=== PATIENT | male | born 1980 | race Caucasian/White ===

== ENCOUNTER → 2016-09-23 | Outpatient (CLI) | payer OTHER ==
--- NOTE | 2016-09-24 23:47 | ECWPNPC ---
PATIENT NAME: HARVINDER GUY : 1980 GENDER: MALE VISIT DATE: 09/23/2016 DISCHARGE DATE: 09/23/16 1647 VISIT LOCKED DATE TIME: PHYSICIAN: JETHRO RODRIGUEZ RESOURCE: JETHRO RODRIGUEZ REASON FOR APPOINTMENT 1. NECK HISTORY OF PRESENT ILLNESS FALL RISK SCREENIN35 Y/O MALE HERE PER REFERRAL OF DR.SUNDIS LIRA FOR PERSISTENT NECK PAIN L>R.HISTORY OF CERVICAL DYSTONIA DIAGNOSED IN 2000.RECIEVING BOTOX ON EVERY THREE MONTH SCHEDULE WITH DR. 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 SCREENING :NO FALLS IN THE PAST YEAR PAIN SCREENING: PATIENT HAS A COMPLAINT OF ACUTE OR CHRONIC PAIN :YES CURRENT MEDICATIONS TAKING VITAMIN C 1000 MG TABLET CHEWABLE 1 TABLET ORALLY ONCE A DAY TAKING VITAMIN B-12 1000 MCG TABLET 1 TABLET ORALLY ONCE A DAY TAKING MULTIVITAMINS - TABLET 1 TABLET ORALLY ONCE A DAY TAKING SOMA 250 MG TABLET 1 TABLET ORALLY BEFORE BEDTIME PRN MEDICATION LIST REVIEWED AND RECONCILED WITH THE PATIENT PAST MEDICAL HISTORY TOBACCO ABUSE B12 DEFICIENCY CERVICAL DYSTONIA DAPHNE (OBSTRUCTIVE SLEEP APNEA) TINNITUS OF BOTH EARS ANXIETY CHRONIC PAIN OF LEFT KNEE RLS (RESTLESS LEGS SYNDROME) HX OF CDIFF 07/2014 ALLERGIES N.K.D.A. SURGICAL HISTORY APPENDECTOMY 07/2014 FAMILY HISTORY FATHER: ALIVE 72 YRS, DIAGNOSED WITH CANCER MOTHER: ALIVE 73 YRS PATERNAL GRAND FATHER: PATERNAL GRAND MOTHER: MATERNAL GRAND FATHER: MATERNAL GRAND MOTHER: 2 BROTHER(S) , 1 SISTER(S) - HEALTHY. 1 SON(S) - HEALTHY. DAD-PROSTATE CA1 BROTHER--LEUKEMIA. SOCIAL HISTORY GENERAL: TOBACCO USE ARE YOU A:CURRENT SMOKER HOW MANY CIGARETTES A DAY DO YOU SMOKE?6-10 HOW SOON AFTER YOU WAKE UP DO YOU SMOKE YOUR FIRST CIGARETTE?WITHIN 5 MIN HOW OFTEN DO YOU SMOKE CIGARETTES?EVERY DAY PATIENT COUNSELED ON THE DANGERS OF TOBACCO USE AND URGED TO QUIT:09/23/2016 ARE YOU INTERESTED IN QUITTING?NOT READY TO QUIT COUNSELED THE PATIENT ON SMOKING EFFECTS, EDUCATION [id number]/08/2017 ALCOHOL SCREENING POINTS0 INTERPRETATIONNEGATIVE RECREATIONAL DRUG USE DRUG USE?NO CAFFEINE CAFFEINE USE?YES HOW OFTEN AND HOW MUCH? 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 EXERCISE: DAILY. MARITAL STATUS: . OTHERS AT HOME: SPOUSE, CHILD. PETS: DOG. QUAKER [id number] AMISH LANGUAGE BENGALI. 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 LEARNING BARRIERS / SPECIAL NEEDS BARRIERS TO LEARNING?NO HEARING IMPAIRED?YES [place] VISION IMPAIRED?YES :CORRECTIVE LENSES COGNITIVELY IMPAIRED?NO READINESS TO LEARN?YES LEARNING PREFERENCES?YES :DEMONSTRATION/VERBAL INSTRUCTION EMOTIONAL BARRIERS?NO SPECIAL DEVICES?NO TYPEWRITER MECHANIC NEEDED?NO PAIN CLINIC PFS, CLERGY, PUBLIC HEALTH REFERRALS PFS REFERRAL NEEDED?NO CLERGY REFERRAL NEEDED?NO PUBLIC HEALTH REFERRAL NEEDED?NO ADVANCED DIRECTIVES HEALTH CARE PROXY?NO WOULD YOU LIKE MORE INFORMATION?NO DO YOU HAVE A DNR?NO WOULD YOU LIKE MORE INFORMATION?NO LIVING WILL?NO WOULD YOU LIKE MORE INFORMATION?NO POWER OF MEDICAL SUPERVISOR?NO WOULD YOU LIKE MORE INFORMATION?NO TRAVEL OUTSIDE US: NO. HOUSING: RENTS HOUSE. DOMESTIC VIOLENCE: NONE. 09/23/16 PLAN OF CARE FOR THE PAIN CENTER REVIEWED WITH PT. AND HE VERBALIZED UNDERSTANDING. AD. HOSPITALIZATION/MAJOR DIAGNOSTIC PROCEDURE FOR APPENDECTOMY--ENDED UP WITH C-DIFF 07/2014 REVIEW OF SYSTEMS CONSTITUTIONAL: ANY CHANGE IN YOUR MEDICAL CONDITION? NO . CHILLS NO . FEVER NO . INFECTION: DO YOU HAVE NEW INFECTIONS? NO . DO YOU HAVE HISTORY OF MRSA? NO HX OF CDIFF . MUSCULOSKELETAL: ANY NEW PATTERNS OF PAIN OR NUMBNESS? NO . SYTEMIC LUPUS NO . GASTROENTEROLOGY: ANY NEW CHANGE IN BOWEL CONTROL? NO . BARRETTS ESOPHAGUS NO . CIRRHOSIS NO . HEPATITIS NO . LIVER FAILURE NO . ACID REFLUX NO . UNEXPLAINED WEIGHT LOSS NO . GENITOURINARY: ANY NEW CHANGE IN BLADDER CONTROL? NO . IS THERE A CHANCE YOU COULD BE ? NO . HEMATOLOGY/LYMPH: DO YOU TAKE ANY BLOOD THINNERS? (FOR EXAMPLE- COUMADIN, PLAVIX, AGGRENOX, PLATEL, PRADAXA, OR XARELTO) NO . WHEN WAS YOUR LAST DOSE? DATE: TIME: . LOW PLATELET COUNT NO . SICKLE CELL DISEASE NO . VON WILLIEBRANDS NO . FACTOR V LEIDEN NO . THALLASEMIA NO . ANEMIA NO . EASY BRUISING NO . NEUROLOGY: HAVE YOU FALLEN IN THE PAST 6 MONTHS? NO . ANY NEW EXTREMITY NUMBNESS OR WEAKNESS? NO . HEAD INJURY NO . DEMENTIA NO . CEREBRAL PALSY NO . MULTIPLE SCLEROSIS NO . DIZZINESS NO . HEADACHE ADMITS, HX OF MIGRAINES--STATES THEY DON'T LAST LONG--TAKES TYLENOL FOR THEM&NBSP;. STROKES &NBSP;&NBSP; NO&NBSP;. VERTIGO &NBSP;&NBSP; NO&NBSP;. CARDIOLOGY: DO YOU HAVE A PACEMAKER OR DEFIBRILLATOR? NO . ANGINA NO . HEART ATTACK NO . HEART SURGERY NO . CONGESTIVE HEART FAILURE/FLUID OVERLOAD NO . CHEST PAIN NO . HIGH BLOOD PRESSURE NO . IRREGULAR HEART BEAT NO . RESPIRATORY: HAVE YOU BEEN SICK IN THE PAST WEEK? NO . FEVER NO . FLU LIKE SYMPTOMS? NO . CPAP NO, HAS IT BUT DOESN'T USE &NBSP;. BYPAP &NBSP;&NBSP; NO&NBSP;. ASTHMA &NBSP;&NBSP; NO&NBSP;. EMPHYSEMA &NBSP;&NBSP; NO&NBSP;. CHRONIC LUNG DISEASES &NBSP;&NBSP; NO&NBSP;. SHORTNESS OF BREATH ON EXERTION &NBSP;&NBSP; YES&NBSP;. COUGH &NBSP;&NBSP; NO&NBSP;. SNORING &NBSP;&NBSP; YES&NBSP;. INTEGUMENTARY: DO YOU HAVE ANY RASHES OR OPEN SORES? NO . ALLERGIC/IMMUNO: ARE YOU ALLERGIC TO SHELLFISH OR IV DYE? NO . ANY NEW ALLERGIES? NO . PSYCHIATRIC: DO YOU HAVE THOUGHTS OF HURTING YOURSELF OR SOMEONE ELSE? NO . ARE YOU ABUSED, NEGLECTED, OR IN AN UNSAFE ENVIRONMENT? NO . ENDOCRINOLOGY: ARE YOU DIABETIC? NO . THYROID DISORDER NO . OTHER: DO YOU NEED ANY PRESCRIPTIONS? NO . IF YES, PLEASE LIST: ____ . ANY NEW PROBLEMS WITH YOUR MEDICATIONS? NO . WHEN DID YOU LAST EAT? ____ . WHEN DID YOU LAST DRINK? ____ . WHAT DID YOU LAST DRINK? ____ . NAME OF PERSON DRIVING YOU HOME? ____ . DO YOU HAVE ANY OTHER QUESTIONS OR CONCERNS NO . REVIEWED BY: PROVIDER: JETHRO IGNACIO . VITAL SIGNS WT 257.6 LBS, HT 72 IN, BMI 34.93 INDEX, BP 140/79 MM HG, HR 80 /MIN, RR 16 /MIN, TEMP 98.7 F, OXYGEN SAT % 93, NA INITIALS SC 15:37, REVIEWED BY: AD. EXAMINATION GENERAL EXAMINATION: GENERAL APPEARANCE:ANXIOUS. PSYCHAFFECT FLAT. NECK:TILTED TO LEFT WITH OCCASIONAL DYSTONIC MOVEMENTS NOTED.. LUNGS:LUNG TRACEY ARE CLEAR TO AUSCULTATION BILATERALLY. GOOD MOVEMENT OF AIR. HEART:S1, S2 IN A REGULAR RATE AND RHYTHM. NO SIGNIFICANT MURMURS, RUBS OR GALLOPS NOTED. ABDOMEN:SOFT, NON-TENDER/NON-DISTENDED, BOWEL SOUNDS PRESENT. CERVICAL SPINE/NECK: C SPINE EXAM:DIAGNOSTIC DATA-MRI [id number]. RANGE OF MOTION OF NECK:PATIENT DEMONSTRATES SOME LIMITATIONS SECONDARY TO INCREASED PAIN.. REFLEXES:2 PLUS BILATERALLY. SENSATIONS:NORMAL BILATERALLY. MOTOR STRENGTH:NORMAL. VERTEBRAL SPINE TENDERNESS:MILD. PARASPINAL MUSCLE SPASM:PRESENT ON LEFT > RIGHT SIDE. TRAPEZIUS TENDERNESS:PRESENT ON LEFT > RIGHT SIDE. MYOFASCIAL TRIGGER POINTS:LEFT TRAPEZIUS AND RHOMBOID REGION. ASSESSMENTS MYOFASCIAL PAIN - M79.1 (PRIMARY) CERVICAL DYSTONIA - G24.3 TREATMENT MYOFASCIAL PAIN NOTES: TRIGGER POINT INJECTION MATERIAL WAS PRINTED,TRIGGER POINT INJECTION: YOUR EXPERIENCE MATERIAL WAS PRINTED. OTHERS TRIGGER POINT 1-2 JETHRO ALDANA 09/23/2016 4:32:32 PM > LEFT NECK NOTES: PT 2X WK X 8 WEEKS. PREVENTIVE MEDICINE PAIN CLINIC TEACHING: PROCEDURE TEACHING PRINTED INFORMATION ON TPI GIVEN TO AND EXPLAINED TO PT. ALONG WITH PRE-PROCEDURE INSTRUCTIONS. PT. VERBALIZED UNDERSTANDING OF BOTH. AD. PROCEDURE CODES FA211 ESTABILISHED PATIENT [facility] FAC[facility] CHARGE DISPOSITION & COMMUNICATION FOLLOW UP 2WK POST (REASON: LEFT NECK TPI) ELECTRONICALLY SIGNED BY MATEUS RUBY ON 09/24/2016 AT 01:55 PM EDT DISCLAIMER : THIS IS A VISIT SUMMARY EXTRACTED FROM THE [employer] CHART. IT IS NOT A COPY OF THE [employer] PROGRESS NOTE. MTDD
== END ==
LOC: M PAIN 15:20
PROVIDERS: ATTEND Nurse Practitioner Family
DX: G89.29 Other chronic pain (principal); M79.1 Myalgia; G24.3 Spasmodic torticollis; F41.9 Anxiety disorder, unspecified; F17.210 Nicotine dependence, cigarettes, uncomplicated; E53.8 Deficiency of other specified B group vitamins; G47.33 Obstructive sleep apnea (adult) (pediatric); H93.13 Tinnitus, bilateral; M25.562 Pain in left knee; G25.81 Restless legs syndrome; Z86.19 Personal history of other infectious and parasitic diseases; Z79.899 Other long term (current) drug therapy

== ENCOUNTER → 2016-10-08 | Outpatient (CLI) | payer OTHER ==
--- NOTE | 2016-10-22 00:52 | ECWPNPC ---
PATIENT NAME: HARVINDER GUY : 1980 GENDER: MALE VISIT DATE: 10/08/2016 DISCHARGE DATE: 10/08/16928 VISIT LOCKED DATE TIME: PHYSICIAN: LUISITO SADLER RESOURCE: LUISITO SADLER REASON FOR APPOINTMENT 1. CERVICAL PAIN HISTORY OF PRESENT ILLNESS HISTORY OF PRESENT ILLNESS: PAIN THE PATIENT DESCRIBES THE PAIN... 35 YEAR OLD MALE PATIENT WITH HISTORY OF CHRONIC NECK DYSTONIA AND PAIN. PATIENT DESCRIBES THE PAIN ACHING, SORE AND THROBBING WITH A PAIN SCORE OF 8/10. PATIENT STATES THAT HE RECEIVED A BOTOX INJECTION FOR HIS CERVICAL DYSTONIA YESTERDAY AT DR. GORE'S OFFICE. DUE TO THE BOTOX INJECTION WE WILL NOT MOVE FORWARD WITH ANY INJECTION UNTIL 1 MONTH AFTER. PATIENT IS CURRENTLY USING SOMA FOR MUSCLE SPASMS AND REPORTS AIDING IN PAIN RELIEF. PATIENT DENIES UNEXPLAINABLE WEIGHT LOSS, FEVER, CHILLS, NEW CHANGES ON HIS URINARY OR BOWEL CONTROL. FALL RISK SCREENING: SCREENING :NO FALLS IN THE PAST YEAR CURRENT MEDICATIONS TAKING VITAMIN C 1000 MG TABLET CHEWABLE 1 TABLET ORALLY ONCE A DAY, NOTES: 10/08 7AM TAKING VITAMIN B-12 1000 MCG TABLET 1 TABLET ORALLY ONCE A DAY, NOTES: 10/08 7AM TAKING MULTIVITAMINS - TABLET 1 TABLET ORALLY ONCE A DAY, NOTES: 10/08 7AM TAKING SOMA 250 MG TABLET 1 TABLET ORALLY BEFORE BEDTIME PRN, NOTES: 10/06 9PM MEDICATION LIST REVIEWED AND RECONCILED WITH THE PATIENT PAST MEDICAL HISTORY TOBACCO ABUSE B12 DEFICIENCY CERVICAL DYSTONIA DAPHNE (OBSTRUCTIVE SLEEP APNEA) TINNITUS OF BOTH EARS ANXIETY CHRONIC PAIN OF LEFT KNEE RLS (RESTLESS LEGS SYNDROME) HX OF CDIFF 07/2014 ALLERGIES N.K.D.A. SURGICAL HISTORY APPENDECTOMY 07/2014 FAMILY HISTORY FATHER: ALIVE 72 YRS, DIAGNOSED WITH CANCER MOTHER: ALIVE 73 YRS PATERNAL GRAND FATHER: PATERNAL GRAND MOTHER: MATERNAL GRAND FATHER: MATERNAL GRAND MOTHER: 2 BROTHER(S) , 1 SISTER(S) - HEALTHY. 1 SON(S) - HEALTHY. DAD-PROSTATE CA1 BROTHER--LEUKEMIA. SOCIAL HISTORY GENERAL: TOBACCO USE ARE YOU A:CURRENT SMOKER HOW MANY CIGARETTES A DAY DO YOU SMOKE?6-10 HOW SOON AFTER YOU WAKE UP DO YOU SMOKE YOUR FIRST CIGARETTE?WITHIN 5 MIN HOW OFTEN DO YOU SMOKE CIGARETTES?EVERY DAY PATIENT COUNSELED ON THE DANGERS OF TOBACCO USE AND URGED TO QUIT:09/23/2016 ARE YOU INTERESTED IN QUITTING?NOT READY TO QUIT COUNSELED THE PATIENT ON SMOKING EFFECTS, EDUCATION [id number]/08/2017 ALCOHOL SCREENING DID YOU HAVE A DRINK CONTAINING ALCOHOL IN THE PAST YEAR?NO POINTS0 INTERPRETATIONNEGATIVE RECREATIONAL DRUG USE DRUG USE?NO CAFFEINE CAFFEINE USE?YES HOW OFTEN AND HOW MUCH? 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 EXERCISE: DAILY. MARITAL STATUS: . OTHERS AT HOME: SPOUSE, CHILD. PETS: DOG. MANDAEISM [id number] PROTESTANT LANGUAGE [place]DIAN. 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 LEARNING BARRIERS / SPECIAL NEEDS BARRIERS TO LEARNING?NO HEARING IMPAIRED?YES [place] VISION IMPAIRED?YES :CORRECTIVE LENSES COGNITIVELY IMPAIRED?NO READINESS TO LEARN?YES LEARNING PREFERENCES?YES :DEMONSTRATION/VERBAL INSTRUCTION EMOTIONAL BARRIERS?NO SPECIAL DEVICES?NO PARTY PLANNER NEEDED?NO PAIN CLINIC PFS, CLERGY, PUBLIC HEALTH REFERRALS PFS REFERRAL NEEDED?NO CLERGY REFERRAL NEEDED?NO PUBLIC HEALTH REFERRAL NEEDED?NO ADVANCED DIRECTIVES HEALTH CARE PROXY?NO WOULD YOU LIKE MORE INFORMATION?NO DO YOU HAVE A DNR?NO WOULD YOU LIKE MORE INFORMATION?NO LIVING WILL?NO WOULD YOU LIKE MORE INFORMATION?NO POWER OF TRACKLESS TROLLEY DRIVER?NO WOULD YOU LIKE MORE INFORMATION?NO TRAVEL OUTSIDE US: NO. HOUSING: RENTS HOUSE. DOMESTIC VIOLENCE NONE. 09/23/16 PLAN OF CARE FOR THE PAIN CENTER REVIEWED WITH PT. AND HE VERBALIZED UNDERSTANDING. AD. HOSPITALIZATION/MAJOR DIAGNOSTIC PROCEDURE FOR APPENDECTOMY--ENDED UP WITH C-DIFF 07/2014 REVIEW OF SYSTEMS CONSTITUTIONAL: ANY CHANGE IN YOUR MEDICAL CONDITION? NO . CHILLS NO . FEVER NO . INFECTION: DO YOU HAVE NEW INFECTIONS? NO . DO YOU HAVE HISTORY OF MRSA? NO . MUSCULOSKELETAL: ANY NEW PATTERNS OF PAIN OR NUMBNESS? NO . GASTROENTEROLOGY: ANY NEW CHANGE IN BOWEL CONTROL? NO . GENITOURINARY: ANY NEW CHANGE IN BLADDER CONTROL? NO . IS THERE A CHANCE YOU COULD BE ? NO . HEMATOLOGY/LYMPH: DO YOU TAKE ANY BLOOD THINNERS? (FOR EXAMPLE- COUMADIN, PLAVIX, AGGRENOX, PLATEL, PRADAXA, OR XARELTO) NO . WHEN WAS YOUR LAST DOSE? DATE: TIME: . NEUROLOGY: HAVE YOU FALLEN IN THE PAST 6 MONTHS? NO . ANY NEW EXTREMITY NUMBNESS OR WEAKNESS? NO . CARDIOLOGY: DO YOU HAVE A PACEMAKER OR DEFIBRILLATOR? NO . RESPIRATORY: HAVE YOU BEEN SICK IN THE PAST WEEK? NO . FEVER NO . FLU LIKE SYMPTOMS? NO . COUGH NO . INTEGUMENTARY: DO YOU HAVE ANY RASHES OR OPEN SORES? NO . ALLERGIC/IMMUNO: ARE YOU ALLERGIC TO SHELLFISH OR IV DYE? NO . ANY NEW ALLERGIES? NO . PSYCHIATRIC: DO YOU HAVE THOUGHTS OF HURTING YOURSELF OR SOMEONE ELSE? NO . ARE YOU ABUSED, NEGLECTED, OR IN AN UNSAFE ENVIRONMENT? NO . ENDOCRINOLOGY: ARE YOU DIABETIC? NO . OTHER: DO YOU NEED ANY PRESCRIPTIONS? NO . IF YES, PLEASE LIST: ____ . ANY NEW PROBLEMS WITH YOUR MEDICATIONS? NO . WHEN DID YOU LAST EAT? ____ . WHEN DID YOU LAST DRINK? ____ . WHAT DID YOU LAST DRINK? ____ . NAME OF PERSON DRIVING YOU HOME? ____ . DO YOU HAVE ANY OTHER QUESTIONS OR CONCERNS PT STATES THAT HE IS A CURRENT SMOKER, REFUSING ANY SMOKING CESSATION COUSELING AT THIS TIME. PT STATES THAT HE HAD BOTOX IN NECK WITH DR LIRA YESTERDAY. PT STATES THAT HE WAS BOOKED FOR TPI FOR NECK PAIN. . REVIEWED BY: PROVIDER: LUISITO SADLER MD . VITAL SIGNS WT 257.8 LBS, HT 72 IN, BMI 34.96 INDEX, BP 130/73 MM HG, HR 78 /MIN, RR 16 /MIN, TEMP 97.6 F, OXYGEN SAT % 95, SAFE IN ENV? (Y/N) Y, NA INITIALS CA 08:42, REVIEWED BY: JENNIFER. EXAMINATION : PATIENT IS ALERT O X 3 AND COOPERATIVE. TENDERNESS IN THE CERVICAL AREA AND PARASPINAL MUSCLE GROUP. BANDS OF TISSUE, RESTRICTION OF MOVEMENT AND PRESENCE OF TRIGGER POINTS IN THE CERVICAL AND SHOULDER AREA. MRI DONE ON 09/07/16 OF THE CERVICAL AREA SHOWS SPONDYLOSIS AT C5-C6 AND C6-C7, OSTEOARTHRITIC CHANGES, AND A SMALL SYNOVIAL CYST AT C4-C5. ASSESSMENTS MYALGIA - M79.1 (PRIMARY) SPONDYLOSIS WITHOUT MYELOPATHY OR RADICULOPATHY, CERVICAL REGION - M47.812 TREATMENT MYALGIA NOTES: WE DISCUSSED SEVERAL ISSUES WITH MR. GUY'S PAIN MANAGEMENT CASE. AT THIS TIME THE PATIENT WILL CONTINUE WITH THE SAME MEDICATION REGIME BEFORE. PATIENT WILL RETURN TO THE CLINIC IN 1 MONTH TO PROCEED WITH TRIGGER POINT INJECTIONS. PATIENT IS AWARE WHY HE UNABLE TO HAVE THE INJECTION TODAY. WE DISCUSSED THE RISKS, BENENFITS, AND ALTNERATIVES OF THE INJECTION AND THE PATIENT WOULD LIKE TO PROCEED AT THIS TIME. INSTRUCTIONS WERE GIVEN, QUESTIONS WERE ANSWERED, PATIENT REPORTS UNDERSTANDING AND AGREES WITH THE PLAN. I, SUZETTE COON, DOCUMENTED THE ABOVE INFORMATION ACTING A SCRIBE FOR DR. SADLER. I HAVE REVIEWED THE ABOVE DOCUMENT, WRITTEN BY SUZETTE CANALES AND I VERIFY THAT IT IS ACCURATE. PROCEDURE CODES FA211 ESTABILISHED PATIENT [facility] CHARGE G8427 DOC MEDS VERIFIED W/PT OR RE G8730 PAIN ASSESS POS TOOL F/U PLAN DOC DISPOSITION & COMMUNICATION FOLLOW UP 1 MONTH TPI ELECTRONICALLY SIGNED BY LUISITO SADLER MD ON 10/21/2016 AT 09:25 PM EDT DISCLAIMER : THIS IS A VISIT SUMMARY EXTRACTED FROM THE [employer] CHART. IT IS NOT A COPY OF THE [employer] PROGRESS NOTE. KOLE
== END ==
LOC: M PAIN 08:30
PROVIDERS: ATTEND Anesthesiology
DX: G89.29 Other chronic pain (principal); M79.1 Myalgia; M47.812 Spondylosis without myelopathy or radiculopathy, cervical region; F17.210 Nicotine dependence, cigarettes, uncomplicated; E53.8 Deficiency of other specified B group vitamins; G24.8 Other dystonia; G47.33 Obstructive sleep apnea (adult) (pediatric); F41.9 Anxiety disorder, unspecified; G25.81 Restless legs syndrome; H93.13 Tinnitus, bilateral; M25.562 Pain in left knee; Z79.899 Other long term (current) drug therapy; Z86.19 Personal history of other infectious and parasitic diseases

== ENCOUNTER → 2016-12-10 | Outpatient (CLI) | payer OTHER ==
[~2016-12-10] MED LIST: BUPIVACAINE HCL 0.25% 10 ML VIAL As Ordered ONE; BUPIVACAINE HCL 0.25% 30 ML VIAL As Ordered ONE; TRIAMCINOLONE ACETONIDE SUSP 40 MG/ML VIAL (J3301) As Ordered ONE
--- NOTE | 2016-12-26 00:37 | ECWPNPC ---
PATIENT NAME: HARVINDER GUY : 1980 GENDER: MALE VISIT DATE: 12/10/2016 DISCHARGE DATE: 12/10/16 0957 VISIT LOCKED DATE TIME: PHYSICIAN: LUISITO SADLER RESOURCE: LUISITO SADLER REASON FOR APPOINTMENT 1. NECK HISTORY OF PRESENT ILLNESS HISTORY OF PRESENT ILLNESS: PAIN THE PATIENT DESCRIBES THE PAIN... FALL RISK SCREENING: SCREENING :NO FALLS IN THE PAST YEAR CURRENT MEDICATIONS TAKING VITAMIN C 1000 MG TABLET CHEWABLE 1 TABLET ORALLY ONCE A DAY, NOTES: 12-08-16 TAKING VITAMIN B-12 1000 MCG TABLET 1 TABLET ORALLY ONCE A DAY, NOTES: 12-08-16 TAKING MULTIVITAMINS - TABLET 1 TABLET ORALLY ONCE A DAY, NOTES: 12-08-16 TAKING SOMA 250 MG TABLET 1 TABLET ORALLY BEFORE BEDTIME PRN, NOTES: BEEN A WHILE MEDICATION LIST REVIEWED AND RECONCILED WITH THE PATIENT PAST MEDICAL HISTORY TOBACCO ABUSE B12 DEFICIENCY CERVICAL DYSTONIA DAPHNE (OBSTRUCTIVE SLEEP APNEA) TINNITUS OF BOTH EARS ANXIETY CHRONIC PAIN OF LEFT KNEE RLS (RESTLESS LEGS SYNDROME) HX OF CDIFF 07/2014 ALLERGIES N.K.D.A. SOCIAL HISTORY GENERAL: TOBACCO USE ARE YOU A:CURRENT SMOKER HOW MANY CIGARETTES A DAY DO YOU SMOKE?6-10 HOW SOON AFTER YOU WAKE UP DO YOU SMOKE YOUR FIRST CIGARETTE?WITHIN 5 MIN HOW OFTEN DO YOU SMOKE CIGARETTES?EVERY DAY PATIENT COUNSELED ON THE DANGERS OF TOBACCO USE AND URGED TO QUIT:09/23/2016 ARE YOU INTERESTED IN QUITTING?NOT READY TO QUIT COUNSELED THE PATIENT ON SMOKING EFFECTS, EDUCATION [id number]/08/2017 SMOKING CESSATION INFORMATION GIVEN12/10/2016 ALCOHOL SCREENING DID YOU HAVE A DRINK CONTAINING ALCOHOL IN THE PAST YEAR?NO POINTS0 INTERPRETATIONNEGATIVE RECREATIONAL DRUG USE DRUG USE?NO CAFFEINE CAFFEINE USE?YES HOW OFTEN AND HOW MUCH? 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 EXERCISE: DAILY. MARITAL STATUS: . OTHERS AT HOME: SPOUSE, CHILD. PETS: DOG. ORTHODOXY [id number] JAINISM LANGUAGE TURKISH. 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 LEARNING BARRIERS / SPECIAL NEEDS BARRIERS TO LEARNING?NO HEARING IMPAIRED?YES [place] VISION IMPAIRED?YES :CORRECTIVE LENSES COGNITIVELY IMPAIRED?NO READINESS TO LEARN?YES LEARNING PREFERENCES?YES :DEMONSTRATION/VERBAL INSTRUCTION EMOTIONAL BARRIERS?NO SPECIAL DEVICES?NO HOE WORKER NEEDED?NO PAIN CLINIC PFS, CLERGY, PUBLIC HEALTH REFERRALS PFS REFERRAL NEEDED?NO CLERGY REFERRAL NEEDED?NO PUBLIC HEALTH REFERRAL NEEDED?NO ADVANCE DIRECTIVES HEALTH CARE PROXY?NO WOULD YOU LIKE MORE INFORMATION?NO DO YOU HAVE A DNR?NO WOULD YOU LIKE MORE INFORMATION?NO LIVING WILL?NO WOULD YOU LIKE MORE INFORMATION?NO POWER OF WEBSPHERE MESSAGE BROKER DEVELOPER?NO WOULD YOU LIKE MORE INFORMATION?NO TRAVEL OUTSIDE US: NO. HOUSING: RENTS HOUSE. DOMESTIC VIOLENCE NONE. 09/23/16 PLAN OF CARE FOR THE PAIN CENTER REVIEWED WITH PT. AND HE VERBALIZED UNDERSTANDING. AD. REVIEW OF SYSTEMS REVIEWED BY: PROVIDER: . CONSTITUTIONAL: ANY CHANGE IN YOUR MEDICAL CONDITION? NO . CHILLS NO . FEVER NO . INFECTION: DO YOU HAVE NEW INFECTIONS? NO . DO YOU HAVE HISTORY OF MRSA? NO . MUSCULOSKELETAL: ANY NEW PATTERNS OF PAIN OR NUMBNESS? NO . GASTROENTEROLOGY: ANY NEW CHANGE IN BOWEL CONTROL? NO . GENITOURINARY: ANY NEW CHANGE IN BLADDER CONTROL? NO . IS THERE A CHANCE YOU COULD BE ? NO . HEMATOLOGY/LYMPH: DO YOU TAKE ANY BLOOD THINNERS? (FOR EXAMPLE- COUMADIN, PLAVIX, AGGRENOX, PLATEL, PRADAXA, OR XARELTO) NO . WHEN WAS YOUR LAST DOSE? DATE: TIME: . NEUROLOGY: HAVE YOU FALLEN IN THE PAST 6 MONTHS? NO . ANY NEW EXTREMITY NUMBNESS OR WEAKNESS? NO . CARDIOLOGY: DO YOU HAVE A PACEMAKER OR DEFIBRILLATOR? NO . RESPIRATORY: HAVE YOU BEEN SICK IN THE PAST WEEK? NO . FEVER NO . FLU LIKE SYMPTOMS? NO . COUGH NO . INTEGUMENTARY: DO YOU HAVE ANY RASHES OR OPEN SORES? NO . ALLERGIC/IMMUNO: ARE YOU ALLERGIC TO SHELLFISH OR IV DYE? NO . ANY NEW ALLERGIES? NO . PSYCHIATRIC: DO YOU HAVE THOUGHTS OF HURTING YOURSELF OR SOMEONE ELSE? NO . ARE YOU ABUSED, NEGLECTED, OR IN AN UNSAFE ENVIRONMENT? NO . ENDOCRINOLOGY: ARE YOU DIABETIC? NO . OTHER: DO YOU NEED ANY PRESCRIPTIONS? NO . IF YES, PLEASE LIST: ____ . ANY NEW PROBLEMS WITH YOUR MEDICATIONS? NO . WHEN DID YOU LAST EAT? ____LAST NIGHT . WHEN DID YOU LAST DRINK? ____ . WHAT DID YOU LAST DRINK? ____LAST NIGHT . NAME OF PERSON DRIVING YOU HOME? ____WIFE . DO YOU HAVE ANY OTHER QUESTIONS OR CONCERNS NO . VITAL SIGNS WT 250 LBS, HT 72 IN, BMI 33.90 INDEX, BP 127/77 MM HG, HR 80 /MIN, RR 16 /MIN, TEMP 97.8 F, OXYGEN SAT % 95%, NA INITIALS SC 08:48, REVIEWED BY: KG. ASSESSMENTS MYALGIA - M79.1 (PRIMARY) PROCEDURES PN TRIGGER POINT INJECTION WITH STEROIDS PRE PROCEDURE DIAGNOSIS 1. MYALGIA 2. PAIN AT BILATERAL NECK AREA AND BILATERAL SHOULDER AREA POST PROCEDURE DIAGNOSIS 1. MYALGIA 2. PAIN AT BILATERAL NECK AREA AND BILATERAL SHOULDER AREA PROCEDURE TRIGGER POINT INJECTION AT BILATERAL NECK AREA AND BILATERAL SHOULDER AREA SURGEON DR. LUISITO SADLER COMMODITIES BROKER NONE ANESTHESIA LOCAL PRE PROCEDURE NOTE THE PATIENT HAS A HISTORY OF CHRONIC PAIN AT THE RIGHT AND LEFT NECK AREA AND RIGHT AND LEFT SHOULDER AREA. I EVALUATE THE PATIENT AND REVIEWED THE CHART. THERE IS EVIDENCE OF BANDS OF TISSUE WITH RESTRICTION OF MOVEMENT AND PRESENCE OF TRIGGER POINT AT THE AFFECTED AREA. I WENT OVER THE RISKS, ALTERNATIVES, AND BENEFITS ASSOCIATED WITH THIS PROCEDURE. THE PATIENT WOULD LIKE TO PROCEED AND GIVE CONSENT TO PERFORMED THE PROCEDURE. THE PATIENT DENIES UNEXPLAINABLE WEIGHT LOSS, FEVER, CHILLS, OR NEW CHANGES IN URINARY OR BOWEL CONTROL DESCRIPTION OF PROCEDURE THE PATIENT WAS BROUGHT TO THE PROCEDURE ROOM AND PLACED IN THE SITTING POSITION. THE AREA WAS CLEANED WITH ALCOHOL. THE PROCEDURE WAS DONE USING ASEPTIC STERILE TECHNIQUE. I CHECKED LATERALITY AND THE LEVEL WHERE THE PROCEDURE WAS GOING TO BE PERFORMED WITH THE PATIENT AND THE SUPPORTING STAFF AT THE MOMENT OF THE TIME OUT IN THE PROCEDURE ROOM. USING A 25-GAUGE NEEDLE, TRIGGER POINTS WERE INJECTED AT THE RIGHT AND LEFT NECK AREA AND RIGHT AND LEFT SHOULDER AREA WITH A TOTAL OF 40 ML OF BUPIVACAINE 0.25% AND KENALOG 40 MG. THERE WAS NO EVIDENCE OF BLOOD, PARESTHESIA OR CEREBROSPINAL FLUID DURING THE PROCEDURE. THE PATIENT WAS SENT TO THE RECOVERY ROOM. THE PATIENT WAS MOVING THE EXTREMITIES AND DOING WELL. THERE WAS NO COMPLICATION DURING THE PROCEDURE POST PROCEDURE NOTE THE PATIENT WILL BE SEEN IN A FOLLOW UP IN THE NEXT FEW WEEKS. INSTRUCTIONS WERE GIVEN, QUESTIONS WERE ANSWERED, AND THE PATIENT EXPRESSED UNDERSTANDING AND AGREES WITH THE PLAN. I, SUZETTE COON, DOCUMENTED THE ABOVE INFORMATION ACTING A SCRIBE FOR DR. SADLER. I, DR. SADLER, HAVE REVIEWED THE ABOVE DOCUMENT, SCRIBED BY SUZETTE COON, AND I VERIFY THAT IT IS ACCURATE PROCEDURE CODES 96838 INJECT TRIGGER POINTS 3/> DISPOSITION & COMMUNICATION FOLLOW UP 3 WEEKS ELECTRONICALLY SIGNED BY LUISITO SADLER MD ON 12/24/2016 AT 11:08 PM EDT DISCLAIMER : THIS IS A VISIT SUMMARY EXTRACTED FROM THE [employer] CHART. IT IS NOT A COPY OF THE [employer] PROGRESS NOTE. KOLE
== END ==
LOC: M PAIN 08:30
PROVIDERS: ATTEND Anesthesiology
DX: M79.1 Myalgia (principal); G89.29 Other chronic pain; E53.8 Deficiency of other specified B group vitamins; G47.33 Obstructive sleep apnea (adult) (pediatric); F17.210 Nicotine dependence, cigarettes, uncomplicated; F41.9 Anxiety disorder, unspecified; G25.81 Restless legs syndrome; M25.562 Pain in left knee; H93.13 Tinnitus, bilateral; G24.1 Genetic torsion dystonia; Z79.891 Long term (current) use of opiate analgesic; Z79.899 Other long term (current) drug therapy
CPT/HCPCS: 20553; J3301

== ENCOUNTER → 2016-12-31 | Outpatient (CLI) | payer OTHER ==
--- NOTE | 2017-01-23 01:10 | ECWPNPC ---
PATIENT NAME: HARVINDER GUY : 1980 GENDER: MALE VISIT DATE: 12/31/2016 DISCHARGE DATE: 12/31/16 1609 VISIT LOCKED DATE TIME: PHYSICIAN: JETHRO RODRIGUEZ RESOURCE: JETHRO RODRIGUEZ REASON FOR APPOINTMENT 1. POST TPI HISTORY OF PRESENT ILLNESS HISTORY OF PRESENT ILLNESS: PAIN THE PATIENT DESCRIBES THE PAIN... FALL RISK SCREENIN35 Y/O MALE HERE PER REFERRAL OF DR.SUNDIS LIRA FOR PERSISTENT NECK PAIN L>R.HISTORY OF CERVICAL DYSTONIA DIAGNOSED IN 2000.RECIEVING BOTOX ON EVERY THREE MONTH SCHEDULE WITH DR. LIRA THAT WILL CONTINUE.HAS TRIALED ACCUPUNCTURE,PHYSICAL THERAPY AND POTATO CHIP FRYER WITHOUT IMPROVEMENT.HERE FOR POST PROC. 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 SCREENING :NO FALLS IN THE PAST YEAR :NO FALLS IN THE PAST YEAR CURRENT MEDICATIONS TAKING VITAMIN C 1000 MG TABLET CHEWABLE 1 TABLET ORALLY ONCE A DAY TAKING VITAMIN B-12 1000 MCG TABLET 1 TABLET ORALLY ONCE A DAY TAKING MULTIVITAMINS - TABLET 1 TABLET ORALLY ONCE A DAY TAKING SOMA 250 MG TABLET 1 TABLET ORALLY BEFORE BEDTIME PRN MEDICATION LIST REVIEWED AND RECONCILED WITH THE PATIENT PAST MEDICAL HISTORY TOBACCO ABUSE B12 DEFICIENCY CERVICAL DYSTONIA DAPHNE (OBSTRUCTIVE SLEEP APNEA) TINNITUS OF BOTH EARS ANXIETY CHRONIC PAIN OF LEFT KNEE RLS (RESTLESS LEGS SYNDROME) HX OF CDIFF 07/2014 ALLERGIES N.K.D.A. SOCIAL HISTORY GENERAL: TOBACCO USE ARE YOU A:CURRENT SMOKER HOW MANY CIGARETTES A DAY DO YOU SMOKE?6-10 HOW SOON AFTER YOU WAKE UP DO YOU SMOKE YOUR FIRST CIGARETTE?WITHIN 5 MIN HOW OFTEN DO YOU SMOKE CIGARETTES?EVERY DAY PATIENT COUNSELED ON THE DANGERS OF TOBACCO USE AND URGED TO QUIT:09/23/2016 ARE YOU INTERESTED IN QUITTING?NOT READY TO QUIT COUNSELED THE PATIENT ON SMOKING EFFECTS, EDUCATION [id number]/08/2017 SMOKING CESSATION INFORMATION GIVEN12/10/2016 ALCOHOL SCREENING DID YOU HAVE A DRINK CONTAINING ALCOHOL IN THE PAST YEAR?NO POINTS0 INTERPRETATIONNEGATIVE RECREATIONAL DRUG USE DRUG USE?NO CAFFEINE CAFFEINE USE?YES HOW OFTEN AND HOW MUCH? 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 EXERCISE: DAILY. MARITAL STATUS: . OTHERS AT HOME: SPOUSE, CHILD. PETS: DOG. ORTHODOXY [id number] LANGUAGE SCOTTISH. 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 LEARNING BARRIERS / SPECIAL NEEDS BARRIERS TO LEARNING?NO HEARING IMPAIRED?YES [place] VISION IMPAIRED?YES :CORRECTIVE LENSES COGNITIVELY IMPAIRED?NO READINESS TO LEARN?YES LEARNING PREFERENCES?YES :DEMONSTRATION/VERBAL INSTRUCTION EMOTIONAL BARRIERS?NO SPECIAL DEVICES?NO SMOCKER NEEDED?NO PAIN CLINIC PFS, CLERGY, PUBLIC HEALTH REFERRALS PFS REFERRAL NEEDED?NO CLERGY REFERRAL NEEDED?NO PUBLIC HEALTH REFERRAL NEEDED?NO HAS THE PATIENT BEEN EDUCATED REGARDING HIS/HER PLAN OF CARE?YES HAS THE PATIENT BEEN EDUCATED REGARDING PAIN, THE RISK FOR PAIN, THE IMPORTANCE OF EFFECTIVE PAIN MANAGEMENT, AND THE PAIN ASSESSMENT PROCESS?YES ADVANCE DIRECTIVES HEALTH CARE PROXY?NO WOULD YOU LIKE MORE INFORMATION?NO DO YOU HAVE A DNR?NO WOULD YOU LIKE MORE INFORMATION?NO LIVING WILL?NO WOULD YOU LIKE MORE INFORMATION?NO POWER OF [place] PACKER?NO WOULD YOU LIKE MORE INFORMATION?NO TRAVEL OUTSIDE US: NO. HOUSING: RENTS HOUSE. DOMESTIC VIOLENCE NONE. 09/23/16 PLAN OF CARE FOR THE PAIN CENTER REVIEWED WITH PT. AND HE VERBALIZED UNDERSTANDING. AD. REVIEW OF SYSTEMS REVIEWED BY: PROVIDER: JETHRO IGNACIO . CONSTITUTIONAL: ANY CHANGE IN YOUR MEDICAL CONDITION? NO . CHILLS NO . FEVER NO . INFECTION: DO YOU HAVE NEW INFECTIONS? NO . DO YOU HAVE HISTORY OF MRSA? NO . MUSCULOSKELETAL: ANY NEW PATTERNS OF PAIN OR NUMBNESS? NO . GASTROENTEROLOGY: ANY NEW CHANGE IN BOWEL CONTROL? NO . GENITOURINARY: ANY NEW CHANGE IN BLADDER CONTROL? NO . IS THERE A CHANCE YOU COULD BE ? NO . HEMATOLOGY/LYMPH: DO YOU TAKE ANY BLOOD THINNERS? (FOR EXAMPLE- COUMADIN, PLAVIX, AGGRENOX, PLATEL, PRADAXA, OR XARELTO) NO . WHEN WAS YOUR LAST DOSE? DATE: TIME: . NEUROLOGY: HAVE YOU FALLEN IN THE PAST 6 MONTHS? NO . ANY NEW EXTREMITY NUMBNESS OR WEAKNESS? NO . CARDIOLOGY: DO YOU HAVE A PACEMAKER OR DEFIBRILLATOR? NO . RESPIRATORY: HAVE YOU BEEN SICK IN THE PAST WEEK? NO . FEVER NO . FLU LIKE SYMPTOMS? NO . COUGH NO . INTEGUMENTARY: DO YOU HAVE ANY RASHES OR OPEN SORES? NO . ALLERGIC/IMMUNO: ARE YOU ALLERGIC TO SHELLFISH OR IV DYE? NO . ANY NEW ALLERGIES? NO . PSYCHIATRIC: DO YOU HAVE THOUGHTS OF HURTING YOURSELF OR SOMEONE ELSE? NO . ARE YOU ABUSED, NEGLECTED, OR IN AN UNSAFE ENVIRONMENT? NO . ENDOCRINOLOGY: ARE YOU DIABETIC? NO . OTHER: DO YOU NEED ANY PRESCRIPTIONS? YES . IF YES, PLEASE LIST: SOMA . ANY NEW PROBLEMS WITH YOUR MEDICATIONS? NO . WHEN DID YOU LAST EAT? ____ . WHEN DID YOU LAST DRINK? ____ . WHAT DID YOU LAST DRINK? ____ . NAME OF PERSON DRIVING YOU HOME? ____ . DO YOU HAVE ANY OTHER QUESTIONS OR CONCERNS NO . VITAL SIGNS WT 250 LBS, HT 72 IN, BMI 33.90 INDEX, BP 128/82 MM HG, HR 73 /MIN, RR 16 /MIN, TEMP 98.2 F, OXYGEN SAT % 93%, NA INITIALS AW 1516, REVIEWED BY: PATRICIA. EXAMINATION GENERAL EXAMINATION: GENERAL APPEARANCE:ANXIOUS. PSYCHAFFECT FLAT. NECK:TILTED TO LEFT WITH OCCASIONAL DYSTONIC MOVEMENTS NOTED.. LUNGS:LUNG TRACEY ARE CLEAR TO AUSCULTATION BILATERALLY. GOOD MOVEMENT OF AIR. HEART:S1, S2 IN A REGULAR RATE AND RHYTHM. NO SIGNIFICANT MURMURS, RUBS OR GALLOPS NOTED. ABDOMEN:SOFT, NON-TENDER/NON-DISTENDED, BOWEL SOUNDS PRESENT. CERVICAL SPINE/NECK: C SPINE EXAM:DIAGNOSTIC DATA-MRI [id number]. RANGE OF MOTION OF NECK:PATIENT DEMONSTRATES SOME LIMITATIONS SECONDARY TO INCREASED PAIN.. REFLEXES:2 PLUS BILATERALLY. SENSATIONS:NORMAL BILATERALLY. MOTOR STRENGTH:NORMAL. VERTEBRAL SPINE TENDERNESS:MILD. PARASPINAL MUSCLE SPASM:PRESENT ON LEFT > RIGHT SIDE. TRAPEZIUS TENDERNESS:PRESENT ON LEFT > RIGHT SIDE. MYOFASCIAL TRIGGER POINTS:LEFT TRAPEZIUS AND RHOMBOID REGION. ASSESSMENTS MYOFASCIAL PAIN - M79.1 (PRIMARY) CERVICAL DYSTONIA - G24.3 TREATMENT MYOFASCIAL PAIN NOTES: TPI NECK. REFERRAL TO:PHYSIOTHERAPY REASON:[id number] [id number] RELEASE-NECK PREVENTIVE MEDICINE PAIN CLINIC TEACHING: PROCEDURE TEACHING PRE-PROCEDURE TEACHING DONE. QUESTIONS ANSWERED AND PATIENT VERBALIZES UNDERSTANDING.. PROCEDURE CODES FA211 ESTABILISHED PATIENT [facility] CHARGE DISPOSITION & COMMUNICATION FOLLOW UP 2WK POST (REASON: TPI NEK) ELECTRONICALLY SIGNED BY MATEUS RUBY ON 01/22/2017 AT 05:02 PM EDT DISCLAIMER : THIS IS A VISIT SUMMARY EXTRACTED FROM THE [employer] CHART. IT IS NOT A COPY OF THE [employer] PROGRESS NOTE. KOLE
== END ==
LOC: M PAIN 15:00
PROVIDERS: ATTEND Nurse Practitioner Family
DX: G89.29 Other chronic pain (principal); M79.1 Myalgia; G24.3 Spasmodic torticollis; F41.9 Anxiety disorder, unspecified; E53.8 Deficiency of other specified B group vitamins; G47.33 Obstructive sleep apnea (adult) (pediatric); M25.561 Pain in right knee; G25.81 Restless legs syndrome; Z79.899 Other long term (current) drug therapy; F17.210 Nicotine dependence, cigarettes, uncomplicated

== ENCOUNTER → 2017-03-19 | Outpatient (CLI) | payer OTHER ==
[~2017-03-19] MED LIST changes: +diazePAM 5 MG TAB As Ordered ONE; +oxyCODONE 5MG TAB As Ordered ONE
--- NOTE | 2017-04-06 23:58 | ECWPNPC ---
PATIENT NAME: HARVINDER GUY : 1980 GENDER: MALE VISIT DATE: 03/19/2017 DISCHARGE DATE: 03/19/17 1728 VISIT LOCKED DATE TIME: PHYSICIAN: LUISITO SADLER RESOURCE: LUISITO SADLER REASON FOR APPOINTMENT 1. TPI, NECK HISTORY OF PRESENT ILLNESS HISTORY OF PRESENT ILLNESS: PAIN THE PATIENT DESCRIBES THE PAIN... FALL RISK SCREENING: SCREENING :NO FALLS IN THE PAST YEAR CURRENT MEDICATIONS TAKING VITAMIN C 1000 MG TABLET CHEWABLE 1 TABLET ORALLY ONCE A DAY, NOTES: 03/18/17 TAKING VITAMIN B-12 1000 MCG TABLET 1 TABLET ORALLY ONCE A DAY, NOTES: 03/18/17 TAKING MULTIVITAMINS - TABLET 1 TABLET ORALLY ONCE A DAY, NOTES: 03/18/17 TAKING SOMA 250 MG TABLET 1 TABLET ORALLY BEFORE BEDTIME PRN, NOTES: 03/15/17 MEDICATION LIST REVIEWED AND RECONCILED WITH THE PATIENT PAST MEDICAL HISTORY TOBACCO ABUSE B12 DEFICIENCY CERVICAL DYSTONIA DAPHNE (OBSTRUCTIVE SLEEP APNEA) TINNITUS OF BOTH EARS ANXIETY CHRONIC PAIN OF LEFT KNEE RLS (RESTLESS LEGS SYNDROME) HX OF CDIFF 07/2014 ALLERGIES N.K.D.A. SURGICAL HISTORY APPENDECTOMY 07/2014 SOCIAL HISTORY GENERAL: TOBACCO USE ARE YOU A:CURRENT SMOKER HOW MANY CIGARETTES A DAY DO YOU SMOKE?6-10 HOW SOON AFTER YOU WAKE UP DO YOU SMOKE YOUR FIRST CIGARETTE?WITHIN 5 MIN HOW OFTEN DO YOU SMOKE CIGARETTES?EVERY DAY PATIENT COUNSELED ON THE DANGERS OF TOBACCO USE AND URGED TO QUIT:09/23/2016 ARE YOU INTERESTED IN QUITTING?NOT READY TO QUIT COUNSELED THE PATIENT ON SMOKING EFFECTS, EDUCATION [id number]/08/2017 SMOKING CESSATION INFORMATION GIVEN12/10/2016 ALCOHOL SCREENING DID YOU HAVE A DRINK CONTAINING ALCOHOL IN THE PAST YEAR?NO POINTS0 INTERPRETATIONNEGATIVE RECREATIONAL DRUG USE DRUG USE?NO CAFFEINE CAFFEINE USE?YES HOW OFTEN AND HOW MUCH? 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 EXERCISE: DAILY. MARITAL STATUS: . OTHERS AT HOME: SPOUSE, CHILD. PETS: DOG. EPISCOPAL [id number] [employer] LANGUAGE [place]. 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 PAIN CLINIC PFS, CLERGY, PUBLIC HEALTH REFERRALS PFS REFERRAL NEEDED?NO CLERGY REFERRAL NEEDED?NO PUBLIC HEALTH REFERRAL NEEDED?NO HAS THE PATIENT BEEN EDUCATED REGARDING HIS/HER PLAN OF CARE?YES HAS THE PATIENT BEEN EDUCATED REGARDING PAIN, THE RISK FOR PAIN, THE IMPORTANCE OF EFFECTIVE PAIN MANAGEMENT, AND THE PAIN ASSESSMENT PROCESS?YES ADVANCE DIRECTIVES HEALTH CARE PROXY?NO WOULD YOU LIKE MORE INFORMATION?NO DO YOU HAVE A DNR?NO WOULD YOU LIKE MORE INFORMATION?NO LIVING WILL?NO WOULD YOU LIKE MORE INFORMATION?NO POWER OF [employer] ASSEMBLY SUPERVISOR?NO WOULD YOU LIKE MORE INFORMATION?NO TRAVEL OUTSIDE US: NO. HOUSING: RENTS HOUSE. DOMESTIC VIOLENCE NONE. 09/23/16 PLAN OF CARE FOR THE PAIN CENTER REVIEWED WITH PT. AND HE VERBALIZED UNDERSTANDING. AD. HOSPITALIZATION/MAJOR DIAGNOSTIC PROCEDURE FOR APPENDECTOMY--ENDED UP WITH C-DIFF 07/2014 REVIEW OF SYSTEMS REVIEWED BY: PROVIDER: . CONSTITUTIONAL: ANY CHANGE IN YOUR MEDICAL CONDITION? NO . CHILLS NO . FEVER NO . INFECTION: DO YOU HAVE NEW INFECTIONS? NO . DO YOU HAVE HISTORY OF MRSA? NO . MUSCULOSKELETAL: ANY NEW PATTERNS OF PAIN OR NUMBNESS? NO . GASTROENTEROLOGY: ANY NEW CHANGE IN BOWEL CONTROL? NO . GENITOURINARY: ANY NEW CHANGE IN BLADDER CONTROL? NO . IS THERE A CHANCE YOU COULD BE ? NO . HEMATOLOGY/LYMPH: DO YOU TAKE ANY BLOOD THINNERS? (FOR EXAMPLE- COUMADIN, PLAVIX, AGGRENOX, PLATEL, PRADAXA, OR XARELTO) NO . WHEN WAS YOUR LAST DOSE? DATE: TIME: . NEUROLOGY: HAVE YOU FALLEN IN THE PAST 6 MONTHS? NO . ANY NEW EXTREMITY NUMBNESS OR WEAKNESS? NO . CARDIOLOGY: DO YOU HAVE A PACEMAKER OR DEFIBRILLATOR? NO . RESPIRATORY: HAVE YOU BEEN SICK IN THE PAST WEEK? NO . FEVER NO . FLU LIKE SYMPTOMS? NO . COUGH NO . INTEGUMENTARY: DO YOU HAVE ANY RASHES OR OPEN SORES? NO . ALLERGIC/IMMUNO: ARE YOU ALLERGIC TO SHELLFISH OR IV DYE? NO . ANY NEW ALLERGIES? NO . PSYCHIATRIC: DO YOU HAVE THOUGHTS OF HURTING YOURSELF OR SOMEONE ELSE? NO . ARE YOU ABUSED, NEGLECTED, OR IN AN UNSAFE ENVIRONMENT? NO . ENDOCRINOLOGY: ARE YOU DIABETIC? NO . OTHER: DO YOU NEED ANY PRESCRIPTIONS? NO . IF YES, PLEASE LIST: ____ . ANY NEW PROBLEMS WITH YOUR MEDICATIONS? NO . WHEN DID YOU LAST EAT? 03/19/17 1100 . WHEN DID YOU LAST DRINK? 03/19/17 1400 . WHAT DID YOU LAST DRINK? WATER . NAME OF PERSON DRIVING YOU HOME? GAGIE . DO YOU HAVE ANY OTHER QUESTIONS OR CONCERNS NO, PT STATES HE RECEIVED FLU VACCINE THE END OF TO EARLY FEBRUARY, CAN'T REMEMBER EXACT DATE . VITAL SIGNS WT 256.0 LBS, HT 72 IN, BMI 34.72 INDEX, BP 159/98 MM HG, HR 91 /MIN, RR 16 /MIN, TEMP 99.0 F, OXYGEN SAT % 96%, NA INITIALS TL 1531ELEVATED BP- TL. ASSESSMENTS MYALGIA - M79.1 (PRIMARY) PROCEDURES PN TRIGGER POINT INJECTION WITH STEROIDS PRE PROCEDURE DIAGNOSIS 1. MYALGIA 2. PAIN AT BILATERAL NECK AREA AND BILATERAL SHOULDER AREA POST PROCEDURE DIAGNOSIS 1. MYALGIA 2. PAIN AT BILATERAL NECK AREA AND BILATERAL SHOULDER AREA PROCEDURE TRIGGER POINT INJECTION AT BILATERAL NECK AREA AND BILATERAL SHOULDER AREA SURGEON DR. LUISITO SADLER DENTOFACIAL ORTHOPEDICS DENTIST NONE ANESTHESIA LOCAL PRE PROCEDURE NOTE THE PATIENT HAS A HISTORY OF CHRONIC PAIN AT THE RIGHT AND LEFT NECK AREA AND RIGHT AND LEFT SHOULDER AREA. I EVALUATE THE PATIENT AND REVIEWED THE CHART. THERE IS EVIDENCE OF BANDS OF TISSUE WITH RESTRICTION OF MOVEMENT AND PRESENCE OF TRIGGER POINT AT THE AFFECTED AREA. I WENT OVER THE RISKS, ALTERNATIVES, AND BENEFITS ASSOCIATED WITH THIS PROCEDURE. THE PATIENT WOULD LIKE TO PROCEED AND GIVE CONSENT TO PERFORMED THE PROCEDURE. THE PATIENT DENIES UNEXPLAINABLE WEIGHT LOSS, FEVER, CHILLS, OR NEW CHANGES IN URINARY OR BOWEL CONTROL DESCRIPTION OF PROCEDURE THE PATIENT WAS BROUGHT TO THE PROCEDURE ROOM AND PLACED IN THE SITTING POSITION. THE AREA WAS CLEANED WITH ALCOHOL. THE PROCEDURE WAS DONE USING ASEPTIC STERILE TECHNIQUE. I CHECKED LATERALITY AND THE LEVEL WHERE THE PROCEDURE WAS GOING TO BE PERFORMED WITH THE PATIENT AND THE SUPPORTING STAFF AT THE MOMENT OF THE TIME OUT IN THE PROCEDURE ROOM. USING A 25-GAUGE NEEDLE, TRIGGER POINTS WERE INJECTED AT THE RIGHT AND LEFT NECK AREA AND RIGHT AND LEFT SHOULDER AREA WITH A TOTAL OF 40 ML OF BUPIVACAINE 0.25% AND KENALOG 40 MG. THERE WAS NO EVIDENCE OF BLOOD, PARESTHESIA OR CEREBROSPINAL FLUID DURING THE PROCEDURE. THE PATIENT WAS SENT TO THE RECOVERY ROOM. THE PATIENT WAS MOVING THE EXTREMITIES AND DOING WELL. THERE WAS NO COMPLICATION DURING THE PROCEDURE POST PROCEDURE NOTE THE PATIENT WILL BE SEEN IN A FOLLOW UP IN THE NEXT FEW WEEKS. INSTRUCTIONS WERE GIVEN, QUESTIONS WERE ANSWERED, AND THE PATIENT EXPRESSED UNDERSTANDING AND AGREES WITH THE PLAN. I, SUZETTE COON, DOCUMENTED THE ABOVE INFORMATION ACTING A SCRIBE FOR DR. SADLER. I HAVE REVIEWED THE ABOVE DOCUMENT, WRITTEN BY SUZETTE CANALES AND I VERIFY THAT IT IS ACCURATE PROCEDURE CODES 02817 INJECT TRIGGER POINTS 3/> DISPOSITION & COMMUNICATION FOLLOW UP 3 WEEKS ELECTRONICALLY SIGNED BY LUISITO SADLER MD ON 04/06/2017 AT 08:52 PM EST DISCLAIMER : THIS IS A VISIT SUMMARY EXTRACTED FROM THE [employer] CHART. IT IS NOT A COPY OF THE [employer] PROGRESS NOTE. KOLE
== END ==
LOC: M PAIN 15:15
PROVIDERS: ATTEND Anesthesiology
DX: G89.29 Other chronic pain (principal); M54.2 Cervicalgia; M25.511 Pain in right shoulder; M25.512 Pain in left shoulder; M79.1 Myalgia; D51.9 Vitamin B12 deficiency anemia, unspecified; G47.30 Sleep apnea, unspecified; F41.9 Anxiety disorder, unspecified; G25.81 Restless legs syndrome; F17.210 Nicotine dependence, cigarettes, uncomplicated; Z79.891 Long term (current) use of opiate analgesic; Z79.899 Other long term (current) drug therapy
CPT/HCPCS: 20553; J3301

== ENCOUNTER 2017-05-30 18:55 | Emergency (ER) | payer OTHER ==
[2017-05-30 21:14] LABS: ABG BASE EXCESS -2.4 (-2.0-2.0); ABG HCO3 21.1 MEQ/L (22.0-26.0); ABG O2 SATURATION 94.4 % (95.0-99.0); ABG PARTIAL PRESSURE CO2 32.9 mmHg (35.0-45.0); ABG PARTIAL PRESSURE O2 67.1 mmHg (75.0-100.0); ABG STANDARD HCO3 22.4 MEQ/L (22.0-26.0); ABG TOTAL CO2 22.1 MEQ/L (22.0-29.0); ABG pH (ARTERIAL) 7.424 UNITS (7.350-7.450)
[2017-05-30 21:27] LABS: BASO % 0.4 % (0.0-1.0); EOS # 0.3 10^3/uL (0.0-0.50); EOS % 3.2 % (0.0-3.0); HEMATOCRIT 43.5 % (42.0-52.0); HEMOGLOBIN 15.5 g/dl (14.0-18.0); IMMATURE GRANULOCYTE % 0.4 % (0-0); LYMPH # 3.4 10^3/uL (1.5-4.5); LYMPH % 33.7 % (24.0-44.0); MEAN CORPUSCULAR HEMOGLOBIN 30.2 pg (27.0-33.0); MEAN CORPUSCULAR HGB CONC 35.6 g/dl (32.0-36.5); MEAN CORPUSCULAR VOLUME 84.6 fl (80.0-96.0); MONO # 0.8 10^3/uL (0.0-0.8); NEUTROPHILS # 5.5 10^3/uL (1.8-7.7); NEUTROPHILS % 54.3 % (36.0-66.0); PLATELET COUNT, AUTOMATED 304 10^3/uL (150-450); RED BLOOD COUNT 5.14 10^6/uL (4.30-6.10); RED CELL DISTRIBUTION WIDTH 13.2 % (11.5-14.5); WHITE BLOOD COUNT 10.1 10^3/uL (4.0-10.0)
[2017-05-30 21:36] LABS: ANION GAP 4 MEQ/L (8-16); BLOOD UREA NITROGEN 10 MG/DL (7-18); CARBON DIOXIDE LEVEL 28 MEQ/L (21-32); CHLORIDE LEVEL 108 MEQ/L (98-107); CREATININE FOR GFR 0.96 MG/DL (0.70-1.30); GLOMERULAR FILTRATION RATE > 60.0 (>60); GLUCOSE, FASTING 104 MG/DL (70-105); SODIUM LEVEL 140 MEQ/L (136-145)
[2017-05-30] MEDS ORDERED: ISOVUE-370 76% 100ML VIAL (Q9967) As Ordered (22:37)
== END 2017-05-30 23:25 | disposition home or self-care (01) ==
LOC: M ED 18:55
DX: F41.9 Anxiety disorder, unspecified (principal); Z79.899 Other long term (current) drug therapy
CPT/HCPCS: Q9967

== ENCOUNTER 2017-11-02 12:49 | Emergency (ER) | payer OTHER ==
[2017-11-02] MEDS: NS 1,000 ML IV (13:45)
[2017-11-02] MEDS ORDERED: METAL LOCK LOOP XX (13:52)
[2017-11-02 14:32] LABS: BASO % 0.4 % (0.0-1.0); EOS # 0.3 10^3/uL (0.0-0.50); EOS % 3.1 % (0.0-3.0); HEMATOCRIT 44.7 % (42.0-52.0); HEMOGLOBIN 15.8 g/dl (13.5-17.5); IMMATURE GRANULOCYTE % 0.4 % (0-3.0); LYMPH # 3.2 10^3/uL (1.5-4.5); LYMPH % 31.6 % (24.0-44.0); MEAN CORPUSCULAR HEMOGLOBIN 29.5 pg (27.0-33.0); MEAN CORPUSCULAR HGB CONC 35.3 g/dl (32.0-36.5); MEAN CORPUSCULAR VOLUME 83.6 fl (80.0-96.0); MONO # 0.8 10^3/uL (0.0-0.8); MONO % 8.4 % (0.0-5.0); NEUTROPHILS # 5.6 10^3/uL (1.8-7.7); NEUTROPHILS % 56.1 % (36.0-66.0); PLATELET COUNT, AUTOMATED 276 10^3/uL (150-450); RED BLOOD COUNT 5.35 10^6/uL (4.30-6.10); RED CELL DISTRIBUTION WIDTH 13.2 % (11.5-14.5)
[2017-11-02] MEDS: METOCLOPRAMIDE INJ 10MG/2ML VIAL (J2765) IV (14:41)
[2017-11-02] MEDS: diphenhydrAMINE INJ 50MG/ML VIAL (J1200) IV (14:41)
[2017-11-02] MEDS: KETOROLAC 30 MG/ML VIAL (J1885) IV (14:41)
[2017-11-02 14:53] LABS: ANION GAP 8 MEQ/L (8-16); BLOOD UREA NITROGEN 8 MG/DL (7-18); CALCIUM LEVEL 8.4 MG/DL (8.5-10.1); CARBON DIOXIDE LEVEL 25 MEQ/L (21-32); CHLORIDE LEVEL 109 MEQ/L (98-107); CREATININE FOR GFR 0.74 MG/DL (0.70-1.30); GLOMERULAR FILTRATION RATE > 60.0 (>60); GLUCOSE, FASTING 94 MG/DL (70-100); POTASSIUM SERUM 4.3 MEQ/L (3.5-5.1); SODIUM LEVEL 142 MEQ/L (136-145)
== END 2017-11-02 16:16 | disposition home or self-care (01) ==
LOC: M ED 12:49
DX: G43.709 Chronic migraine without aura, not intractable, without status migrainosus (principal); G47.62 Sleep related leg cramps
CPT/HCPCS: J1200

== ENCOUNTER → 2017-11-17 | Outpatient (CLI) | payer OTHER ==
[2017-11-17 16:10] LABS: ESTIMATED AVERAGE GLUCOSE 117 MG/DL (60-110); HEMOGLOBIN A1c 5.7 %
[2017-11-17 16:19] LABS: ERYTHROCYTE SEDIMENTATION RATE 4 mm/hr (0-15)
[2017-11-17 16:45] LABS: RHEUMATOID FACTOR QUANT < 10.0 IU/ML (<15.0)
[2017-11-17 16:47] LABS: VITAMIN B12 LEVEL 1679 PG/ML
[2017-11-17 16:48] LABS: FOLATE 23.4 NG/ML
[2017-11-25 00:07] LABS: ACETYLCHOLINE RCPTOR BINDING A < 0.03 nmol/L (0.00-0.24); ACETYLCHOLINE RCPTOR BLOCK AB 12 % (0-25); ACETYLCHOLINE RCPTOR MODULATIN <12 % (0-20); ANTINUCLEAR ANTIBODIES DIRECT Negative (Negative); STRIATIONAL ANTIBODIES Negative (Neg:<1:40); VITAMIN B1 LEVEL WHOLE BLOOD 123.2 nmol/L (66.5-200.0); VITAMIN B6,PYRIDOXAL PHOSPHATE 38.3 ug/L (5.3-46.7); VITAMIN E(ALPHA TOCOPHEROL) 29.4 mg/L (5.9-19.4)
== END ==
LOC: M LAB 15:17
DX: G62.9 Polyneuropathy, unspecified (principal)
CPT/HCPCS: 82746

== ENCOUNTER 2018-05-21 11:41 | Emergency (ER) | payer OTHER ==
[~2018-05-21] VITALS: Ht 188 cm; Wt 109.5 kg
[~2018-05-21 11:41] MED LIST changes: -BUPIVACAINE HCL 0.25% 10 ML VIAL As Ordered ONE; -BUPIVACAINE HCL 0.25% 30 ML VIAL As Ordered ONE; +NAPR-885 PO; +SOMA250T PO; -TRIAMCINOLONE ACETONIDE SUSP 40 MG/ML VIAL (J3301) As Ordered ONE; -diazePAM 5 MG TAB As Ordered ONE; -oxyCODONE 5MG TAB As Ordered ONE
[2018-05-21] MEDS ORDERED: HYDR-3713 (11:49)
[2018-05-21] MEDS ORDERED: TOPI100T9 (11:49)
[2018-05-21] MEDS ORDERED: DIAZ2TAB (11:49)
[2018-05-21 12:53] LABS: BASO % 0.3 % (0.0-1.0); EOS # 0.3 10^3/uL (0.0-0.50); HEMOGLOBIN 16.2 g/dl (13.5-17.5); LYMPH % 29.5 % (24.0-44.0); MEAN CORPUSCULAR HEMOGLOBIN 29.2 pg (27.0-33.0); MEAN CORPUSCULAR HGB CONC 34.5 g/dl (32.0-36.5); MEAN CORPUSCULAR VOLUME 84.7 fl (80.0-96.0); MONO # 0.6 10^3/uL (0.0-0.8); MONO % 5.6 % (0.0-5.0); NEUTROPHILS # 6.2 10^3/uL (1.8-7.7); NEUTROPHILS % 61.3 % (36.0-66.0); PLATELET COUNT, AUTOMATED 290 10^3/uL (150-450); RED BLOOD COUNT 5.55 10^6/uL (4.30-6.10)
[2018-05-21 13:23] LABS: MONO REFLEX EBV COMP NEGATIVE (NEGATIVE)
--- NOTE | 2018-05-21 13:42 | REP ---
However quadrant sonography: History: Left upper quadrant abdominal pain. Findings: Scanning through left upper quadrant of the abdomen demonstrates a normal sized homogeneous spleen measuring 11.7 cm in greatest diameter. There is no evidence of ascites in the left upper quadrant. No hydronephrosis is seen on the left. The left kidney is morphologically intact with dimensions of 13.0 x 6.8 x 6.0 cm. Impression: Negative left upper quadrant sonogram. Electronically Signed by Aayush Ta MD 05/21/2018 01:34 P
[2018-05-21 13:47] LABS: ALBUMIN 4.1 GM/DL (3.2-5.2); ALT/SGPT 42 U/L (12-78); BILIRUBIN,DIRECT < 0.1 MG/DL (0.0-0.2); BILIRUBIN,TOTAL 0.2 MG/DL (0.2-1.0); BLOOD UREA NITROGEN 8 MG/DL (7-18); CALCIUM LEVEL 9.2 MG/DL (8.5-10.1); CARBON DIOXIDE LEVEL 19 MEQ/L (21-32); CHLORIDE LEVEL 112 MEQ/L (98-107); CREATININE FOR GFR 0.86 MG/DL (0.70-1.30); GLOMERULAR FILTRATION RATE > 60.0 (>60); GLUCOSE, FASTING 91 MG/DL (70-100); POTASSIUM SERUM 4.1 MEQ/L (3.5-5.1); SODIUM LEVEL 140 MEQ/L (136-145); TOTAL PROTEIN 7.3 GM/DL (6.4-8.2)
[2018-05-21] MEDS ORDERED: PERC5TAB12 PO (14:10)
[2018-05-21 14:20] VITALS: BP 116/62
[2018-05-23 14:13] LABS: EBV VIRAL CAPSID AG IgG >600.0 U/mL (0.0-17.9); EBV VIRAL CAPSID AG IgM <36.0 U/mL (0.0-35.9)
== END 2018-05-21 14:22 | disposition home or self-care (01) ==
LOC: M ED 11:41
DX: R10.12 Left upper quadrant pain (principal); E78.5 Hyperlipidemia, unspecified; G43.909 Migraine, unspecified, not intractable, without status migrainosus; Z87.442 Personal history of urinary calculi; Z79.899 Other long term (current) drug therapy

== ENCOUNTER 2018-06-01 18:44 | Emergency (ER) | payer OTHER ==
[~2018-06-01] VITALS: Ht 188 cm; Wt 106.4 kg
[2018-06-01 18:44] VITALS: BP 160/91
[~2018-06-01 18:44] MED LIST changes: +DIAZ2TAB; +HYDR-3713; +PERC5TAB12 PO; +TOPI100T9
[2018-06-01] MEDS ORDERED: GI COCKTAIL 50ML BTL(HYOSCYAMINE/MAALOX/LIDOCAINE VISCOUS)(1:3:1) As Ordered ONE (18:56)
[2018-06-01] MEDS ORDERED: HYDR-3713 PO (19:00)
[2018-06-01] MEDS ORDERED: GI COCKTAIL 50ML BTL(HYOSCYAMINE/MAALOX/LIDOCAINE VISCOUS)(1:3:1) PO ONE (19:00)
[2018-06-01 19:35] LABS: BASO % 0.4 % (0.0-1.0); EOS # 0.3 10^3/uL (0.0-0.50); EOS % 3.2 % (0.0-3.0); HEMATOCRIT 46.8 % (42.0-52.0); LYMPH # 3.5 10^3/uL (1.5-4.5); LYMPH % 36.6 % (24.0-44.0); MEAN CORPUSCULAR HEMOGLOBIN 29.4 pg (27.0-33.0); MEAN CORPUSCULAR HGB CONC 34.2 g/dl (32.0-36.5); MEAN CORPUSCULAR VOLUME 85.9 fl (80.0-96.0); MONO # 0.7 10^3/uL (0.0-0.8); MONO % 6.7 % (0.0-5.0); NEUTROPHILS # 5.1 10^3/uL (1.8-7.7); NEUTROPHILS % 52.8 % (36.0-66.0); PLATELET COUNT, AUTOMATED 291 10^3/uL (150-450); RED BLOOD COUNT 5.45 10^6/uL (4.30-6.10); WHITE BLOOD COUNT 9.6 10^3/uL (4.0-10.0)
[2018-06-01 20:15] LABS: ALBUMIN 4.4 GM/DL (3.2-5.2); ALT/SGPT 48 U/L (12-78); AMYLASE 49 U/L (25-115); BILIRUBIN,DIRECT < 0.1 MG/DL (0.0-0.2); BILIRUBIN,TOTAL 0.2 MG/DL (0.2-1.0); BLOOD UREA NITROGEN 11 MG/DL (7-18); CALCIUM LEVEL 9.4 MG/DL (8.5-10.1); CARBON DIOXIDE LEVEL 25 MEQ/L (21-32); CHLORIDE LEVEL 108 MEQ/L (98-107); CREATININE FOR GFR 1.01 MG/DL (0.70-1.30); GLOMERULAR FILTRATION RATE > 60.0 (>60); GLUCOSE, FASTING 96 MG/DL (70-100); LIPASE 185 U/L (73-393); POTASSIUM SERUM 3.8 MEQ/L (3.5-5.1); SODIUM LEVEL 141 MEQ/L (136-145); TOTAL PROTEIN 7.6 GM/DL (6.4-8.2)
[2018-06-01] MEDS ORDERED: ISOVUE-370 76% 100ML VIAL (Q9967) As Ordered ONE (21:18)
--- NOTE | 2018-06-01 23:41 | REPVR ---
EXAM: CT Abdomen and Pelvis With Contrast EXAM DATE/TIME: 06/01/2018 10:28 PM CLINICAL HISTORY: 37 years old, male; Pain; Abdominal pain; Localized; Left upper quadrant (luq); Additional info: Luq pain; R/O colitis TECHNIQUE: Axial computed tomography images of the abdomen and pelvis with intravenous contrast. All CT scans at this facility use at least one of these dose optimization techniques: automated exposure control; mA and/or kV adjustment per patient size (includes targeted exams where dose is matched to clinical indication); or iterative reconstruction. Coronal and sagittal reformatted images were created and reviewed. CONTRAST: 100 ml of ISOVUE 370 administered intravenously. COMPARISON: Abdomen, limited US 05/21/2018 1:04 PM FINDINGS: Lower thorax: Mild bibasilar dependent changes. ABDOMEN: Liver: Mild diffuse fatty infiltration of liver. Gallbladder and bile ducts: Normal. No calcified stones. No ductal dilation. Pancreas: Normal. No ductal dilation. Spleen: Unremarkable. Adrenals: Normal. No mass. Kidneys and ureters: Normal. No hydronephrosis. Stomach and bowel: No bowel dilatation or obstruction. Focal non distention of the splenic flexure without any surrounding inflammatory changes. Findings are nonspecific. No evidence of colitis. Appendix: Postsurgical changes in the right lower quadrant likely prior appendectomy. PELVIS: Bladder: Unremarkable as visualized. Reproductive: Unremarkable as visualized. ABDOMEN and PELVIS: Intraperitoneal space: Normal. No free air. No significant fluid collection. Bones/joints: No acute fracture. No dislocation. Soft tissues: Unremarkable. Vasculature: Normal. No abdominal aortic aneurysm. Lymph nodes: Few prominent subcentimeter mesenteric and retroperitoneal lymph nodes. These are not pathologically enlarged by CT criteria. IMPRESSION: No bowel dilatation, obstruction, or colitis. Mild fatty infiltration of liver. No acute finding. Electronically signed by: Shena Elias On 06/01/2018 23:41:34 PM
== END 2018-06-02 00:29 | disposition home or self-care (01) ==
LOC: M ED 18:44
DX: R10.12 Left upper quadrant pain (principal); G43.909 Migraine, unspecified, not intractable, without status migrainosus
CPT/HCPCS: 74177; 80048; 80076; 81001; 82150; 83690; 85025; 99283; Q9967

== ENCOUNTER 2018-07-20 10:15 | Day surgery (SDC) | payer OTHER ==
[~2018-07-20] VITALS: Ht 188 cm; Wt 107.4 kg
[~2018-07-20 10:15] MED LIST changes: +DIAZ2TAB PO; +HYDR-3713 PO; +MAGN250T7 PO; +MULT1TAB10 PO; +NS 1,000 ML IV ONE; +TOPI200T7 PO; +VITA1TAB22 PO; +VITA200015 PO; +VITA500T PO
[2018-07-20] MEDS ORDERED: PROPOFOL 500 MG/50 ML VIAL As Ordered ONE (11:36)
[2018-07-20] MEDS ORDERED: fentaNYL 100 MCG/2 ML INJECTION (J3010) As Ordered ONE (11:36)
[2018-07-20] MEDS ORDERED: LIDOCAINE 2% INJ 100 MG/5 ML SDV (FOR ANES.) As Ordered ONE (11:36)
--- NOTE | 2018-07-20 11:41 | ROOR ---
Patient Name: Jens Hawkins Procedure Date: 07/20/2018 11:24 AM Date of : 1980 Age: 37 Room: [facility] Gender: Male Note Status: Finalized Procedure: Upper Endoscopy + Biopsies Indications: Heartburn Providers: Dirk Ivory MD Referring MD: Geraldo Doshi Requesting Provider: Medicines: Monitored Anesthesia Care Complications: No immediate complications. Procedure: Pre-Anesthesia Assessment: - The heart rate, respiratory rate, oxygen saturations, blood pressure, adequacy of pulmonary ventilation, and response to care were monitored throughout the procedure. The Endoscope was introduced through the mouth, and advanced to the second part of duodenum. The upper GI endoscopy was accomplished without difficulty. The patient tolerated the procedure well. Findings: The Z-line was regular and was found 40 cm from the incisors. Multiple biopsies were obtained with cold forceps for evaluation to rule out Quigley's Esophagus randomly at the gastroesophageal junction. A small hiatal hernia was present. Diffuse mild inflammation characterized by congestion (edema) and erythema was found in the gastric body. Biopsies were taken with a cold forceps for Helicobacter pylori testing. Diffuse mild mucosal changes characterized by flattening were found in the first portion of the duodenum. Biopsies for histology were taken with a cold forceps for evaluation of celiac disease. The exam was otherwise without abnormality. One cratered duodenal ulcer with no stigmata of bleeding was found in the first portion of the duodenum. Impression: - Z-line regular, 40 cm from the incisors. - Small hiatal hernia. - Mucosal changes suspicious for gastritis. Biopsied. - Mucosal changes in the duodenum. Biopsied. - The examination was otherwise normal. - One duodenal ulcer with no stigmata of bleeding. - Multiple biopsies were obtained at the gastroesophageal junction. Recommendation: - Patient has a contact number available for emergencies. The signs and symptoms of potential delayed complications were discussed with the patient. Return to normal activities tomorrow. Written discharge instructions were provided to the patient. - Resume previous diet. - Discharge patient to home. - Follow an antireflux regimen. - Continue present medications. - Await pathology results. - Telephone GI clinic for pathology results in 1 week. - Return to referring physician. - The findings and recommendations were discussed with the patient's family. Dirk Ivory MD Dirk Ivory MD 07/20/2018 11:41:30 AM This report has been signed electronically. Number of Addenda: 0 Note Initiated On: 07/20/2018 11:24 AM Estimated Blood Loss: Estimated blood loss: none.
--- NOTE | 2018-07-20 11:57 | ROOR ---
Patient Name: Jens Hawkins Procedure Date: 07/20/2018 11:25 AM Date of : 1980 Age: 37 Room: [facility] Gender: Male Note Status: Finalized Procedure: Colonoscopy Indications: Abdominal pain in the left lower quadrant, Clinically significant diarrhea of unexplained origin Providers: Dirk Ivory MD Referring MD: Geraldo Doshi Requesting Provider: Medicines: Monitored Anesthesia Care Complications: No immediate complications. Procedure: Pre-Anesthesia Assessment: - The heart rate, respiratory rate, oxygen saturations, blood pressure, adequacy of pulmonary ventilation, and response to care were monitored throughout the procedure. The Colonoscope was introduced through the anus and advanced to 3 cm into the ileum. The colonoscopy was performed without difficulty. The patient tolerated the procedure well. The quality of the bowel preparation was excellent. Findings: The perianal and digital rectal examinations were normal. Non-bleeding internal hemorrhoids were found during retroflexion. The hemorrhoids were small and Grade I (internal hemorrhoids that do not prolapse). No other significant abnormalities were identified in a careful examination of the remainder of the colon. Biopsies for histology were taken with a cold forceps from the ascending colon, transverse colon and descending colon for evaluation of microscopic colitis. The terminal ileum appeared normal. The exam was otherwise without abnormality on direct and retroflexion views. Impression: - Non-bleeding internal hemorrhoids. - The examined portion of the ileum was normal. - The examination was otherwise normal on direct and retroflexion views. - Biopsies were taken with a cold forceps from the ascending colon, transverse colon and descending colon for evaluation of microscopic colitis. - The exam was otherwise normal to the cecum. Recommendation: - Patient has a contact number available for emergencies. The signs and symptoms of potential delayed complications were discussed with the patient. Return to normal activities tomorrow. Written discharge instructions were provided to the patient. - High fiber diet. - Discharge patient to home. - Continue present medications. - Await pathology results. - Telephone GI clinic for pathology results in 1 week. - Check Portal Online for Path Results.([email or web address] - Return to referring physician. - The findings and recommendations were discussed with the patient's family. Dirk Ivory MD Dirk Ivory MD 07/20/2018 11:57:14 AM This report has been signed electronically. Number of Addenda: 0 Note Initiated On: 07/20/2018 11:25 AM Estimated Blood Loss: Estimated blood loss: none.
[2018-07-20 12:22] VITALS: BP 103/51
== END 2018-07-20 12:25 | disposition home or self-care (01) ==
LOC: M OPP 10:15
PROVIDERS: ATTEND Internal Medicine Gastroenterology
DX: K64.0 First degree hemorrhoids (principal); R10.32 Left lower quadrant pain; R19.7 Diarrhea, unspecified; K44.9 Diaphragmatic hernia without obstruction or gangrene; K31.89 Other diseases of stomach and duodenum; K26.9 Duodenal ulcer, unspecified as acute or chronic, without hemorrhage or perforation; R12 Heartburn; F17.210 Nicotine dependence, cigarettes, uncomplicated
CPT/HCPCS: 43239; 45380; 88305; J3010